=== PATIENT | female | born 1995 | race Caucasian/White ===

== ENCOUNTER 2023-11-26 21:08 | Emergency (ER) | payer SELFPAY ==
[~2023-11-26] VITALS: Ht 162.6 cm; Wt 68.0 kg
[2023-11-26 21:09] VITALS: O2SAT 100
[2023-11-26] MEDS ORDERED: TOPUD MT (21:37)
[2023-11-26] MEDS ORDERED: IBUP-2028 MT (21:37)
[2023-11-26] MEDS: KETOROLAC 30MG/ML VIAL IM ONE (21:59)
[2023-11-26] MEDS: ACETAMINOPHEN 325MG TABLET PO ONE (22:00)
[2023-11-26 22:07] VITALS: BP 126/66; PULSE 76; RESP 19; TEMP 98.9
== END 2023-11-26 22:08 | disposition home or self-care (01) ==
LOC: ER 21:08
DX: S09.90XA Unspecified injury of head, initial encounter (principal); W18.39XA Other fall on same level, initial encounter; Y93.89 Activity, other specified; Y92.89 Other specified places as the place of occurrence of the external cause; Y99.8 Other external cause status
CPT/HCPCS: 99283; J1885